=== PATIENT | female | born 1990 ===

== ENCOUNTER 2016-09-26 17:35 | Emergency (ER) | payer BC ==
[2016-09-26 18:23] VITALS: BP 135/88
--- NOTE | 2016-09-26 19:08 | UC ---
Respiratory Complaint HPI - HPI Summary HPI Summary: 4 days of fever cough and body aches - History of Current Complaint Chief Complaint: UCRespiratory Stated Complaint: FEVER,COUGH Time Seen by Provider: 09/26/16 19:01 Hx Obtained From: Patient Hx Last Menstrual Period: 09/12/16 ?: No Onset/Duration: Sudden Onset, Lasting Days - 4, Still Present Timing: Constant Severity Initially: Moderate Severity Currently: Moderate Character: Cough: Nonproductive Aggravating Factors: Nothing Alleviating Factors: Nothing Associated Signs And Symptoms: Positive: Fever, Chills, URI, Nasal Congestion - Allergies/Home Medications Allergies/Adverse Reactions: Allergies Allergy/AdvReac Type Severity Reaction Status Date / Time No Known Allergies Allergy Verified 09/26/16 18:22 Home Medications: Home Medications Oral Contraceptive 1 tab PO DAILY 09/26/16 [History Confirmed 09/26/16] PMH/Surg Hx/FS Hx/Imm Hx Previously Healthy: Yes - Surgical History Surgical History: None - Family History Known Family History: Positive: None - Social History Occupation: Employed Full-time Lives: With Family Alcohol Use: Weekly Substance Use Type: None Smoking Status (MU): Never Smoked Tobacco Review of Systems Constitutional: Fever, Chills, Fatigue Skin: Negative Eyes: Negative ENT: Negative Respiratory: Cough Cardiovascular: Negative Gastrointestinal: Negative Genitourinary: Negative Motor: Negative Neurovascular: Negative Musculoskeletal: Arthralgia, Myalgia Neurological: Negative Psychological: Negative All Other Systems Reviewed And Are Negative: Yes Physical Exam Triage Information Reviewed: Yes Appearance: Well-Nourished, Ill-Appearing - mild, Pain Distress - mild Vital Signs: Initial Vital Signs Temp 100 F 09/26/16 18:19 Pulse 133 09/26/16 18:19 Resp 18 09/26/16 18:19 BP 135/88 09/26/16 18:19 Pulse Ox 100 09/26/16 18:19 Vital Signs Reviewed: Yes Eye Exam: Normal Eyes: Positive: Conjunctiva Clear ENT Exam: Normal ENT: Positive: Normal ENT inspection, Hearing grossly normal, Pharynx normal, TMs normal. Negative: Nasal congestion, Nasal drainage, Trismus, Muffled/ hoarse voice Dental Exam: Normal Neck exam: Normal Neck: Positive: Supple, Nontender Respiratory Exam: Normal Cardiovascular Exam: Normal Abdominal Exam: Normal Musculoskeletal Exam: Normal Neurological Exam: Normal Psychological Exam: Normal Skin Exam: Normal UC Diagnostic Evaluation - Laboratory O2 Sat by Pulse Oximetry: 100 Respiratory Course/Dx - Course Course Of Treatment: Robitussin, Tylenol, ibuprofen, Zithromax, follow with pcp - Differential Dx/Diagnosis Differential Diagnosis/HQI/PQRI: Asthma, Bronchitis, Lower Resp Infection, Sinusitis Provider Diagnoses: Acute Bronchitis Discharge - Discharge Plan Condition: Stable Disposition: HOME Prescriptions: Azithromycin TAB* [Zithromax TAB (Z-HARSHA) 250 mg #6 tabs] 2 tab PO .TODAY, THEN 1 DAILY #6 tab Patient Education Materials: Antitussive/Expectorant (By mouth), Acute Bronchitis (ED), Bronchospasm (ED) Referrals: [facility] [[facility]] - 1 Week
== END 2016-09-26 19:15 | disposition home or self-care (01) ==
LOC: UCCORT 17:35
DX: J20.9 Acute bronchitis, unspecified (principal)
CPT/HCPCS: 87502; 99212; G0463